=== PATIENT | male | born 1945 | race Caucasian/White ===

== ENCOUNTER 2017-02-12 08:54 | Emergency (ER) | payer MEDICARE, MEDICAID ==
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
[2017-02-12 10:57] VITALS: BP 127/110
== END 2017-02-12 10:56 | disposition home or self-care (01) ==
LOC: ED 08:54
DX: Z41.2 Encounter for routine and ritual male circumcision (principal); F17.210 Nicotine dependence, cigarettes, uncomplicated; E78.5 Hyperlipidemia, unspecified
CPT/HCPCS: 99282

== ENCOUNTER 2017-05-08 04:13 | Emergency (ER) | payer MEDICARE, MEDICAID ==
[2017-05-08] MEDS ORDERED: Albuterol/Ipratropium NEB.SOL* Albuterol 2.5 MG/Ipratropium 0.5 MG 3 ML INH ONE (04:36)
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
[2017-05-08 05:25] LABS: Hematocrit 42 % (42-52); Hemoglobin 13.9 g/dl (14.0-18.0); Mean Corpuscular HGB Conc 33 g/dl (31-36); Mean Corpuscular Hemoglobin 31 pg (27-31); Mean Corpuscular Volume 94 fL (80-94); Mean Platelet Volume 10 um3 (7.4-10.4); Red Blood Count 4.44 10^6/ul (4.0-5.4); Red Cell Distribution Width 13 % (10.5-15); White Blood Count 12.8 10^3/ul (3.5-10.8)
[2017-05-08 05:37] LABS: Albumin 4.2 g/dL (3.2-5.2); BUN/Creatinine Ratio 21.3 (8-20); Calcium 9.5 mg/dL (8.6-10.3); EGFR African American 123.3 (>60); EGFR Non-African American 95.8 (>60); Globulin 3.1 g/dL (2-4); Potassium 3.8 mmol/L (3.5-5.0); Total Bilirubin 0.8 mg/dL (0.2-1.0); Total Protein 7.3 g/dL (6.4-8.9)
[2017-05-08] MEDS ORDERED: methylPREDNISolone 125 MG* 2 ML VIAL IV ONE (05:52)
[2017-05-08] MEDS ORDERED: Ketorolac INJ* 30 MG/ML 1 ML VIAL IM ONE (06:03)
[2017-05-08] MEDS ORDERED: Ketorolac INJ* 30 MG/ML 1 ML VIAL ONE (06:05)
[2017-05-08] MEDS ORDERED: Ketorolac INJ* 30 MG/ML 1 ML VIAL IV PUSH ONE (06:08)
[2017-05-08 06:14] LABS: C Reactive Protein 24.51 mg/L (< 5.00)
[2017-05-08 06:44] VITALS: BP 127/59
--- NOTE | 2017-05-08 07:47 | RAD ---
HISTORY: Shortness of breath COMPARISONS: September 16, 2014 VIEWS: 2: Frontal dual-energy and lateral views of the chest. FINDINGS: CARDIOMEDIASTINAL SILHOUETTE: The cardiomediastinal silhouette is normal. OFELIA: The ofelia are normal. PLEURA: The costophrenic angles are sharp. No pleural abnormalities are noted. LUNG PARENCHYMA: There is patchy alveolar opacification of the left base ABDOMEN: The upper abdomen is clear. There is no subphrenic gas. BONES AND SOFT TISSUES: No bone or soft tissue abnormalities are noted. OTHER: Left-sided pacemaker is noted IMPRESSION: PATCHY LEFT BASILAR ATELECTASIS VERSUS CONSOLIDATION. RECOMMEND FOLLOW-UP UNTIL RESOLUTION TO EXCLUDE UNDERLYING PULMONARY PARENCHYMAL PATHOLOGY.
== END 2017-05-08 06:44 | disposition home or self-care (01) ==
LOC: ED 04:13
DX: J44.1 Chronic obstructive pulmonary disease with (acute) exacerbation (principal); M54.9 Dorsalgia, unspecified; R07.9 Chest pain, unspecified; F17.210 Nicotine dependence, cigarettes, uncomplicated; R06.02 Shortness of breath
CPT/HCPCS: 36415; 71020; 80053; 83605; 84484; 85025; 86140; 93005; 99282; A9270-GY; J1885; J2930

== ENCOUNTER → 2018-01-02 08:50 | Day surgery (SDC) | payer MEDICARE, MEDICAID ==
[~2018-01-02 08:50] MED LIST: Iohexol 300 (CONTRAST) 10 ML SDV ONE
== END | disposition home or self-care (01) ==
LOC: CHICATH 08:50
PROVIDERS: ATTEND Specialist
DX: T82.110A Breakdown (mechanical) of cardiac electrode, initial encounter (principal); Z95.0 Presence of cardiac pacemaker; I25.10 Atherosclerotic heart disease of native coronary artery without angina pectoris; I49.5 Sick sinus syndrome; I10 Essential (primary) hypertension; I25.2 Old myocardial infarction; G47.33 Obstructive sleep apnea (adult) (pediatric); M19.90 Unspecified osteoarthritis, unspecified site; R06.02 Shortness of breath; E78.5 Hyperlipidemia, unspecified; I47.1 Supraventricular tachycardia; R42 Dizziness and giddiness; Z72.0 Tobacco use; R55 Syncope and collapse
CPT/HCPCS: Q9967

== ENCOUNTER 2021-01-26 08:19 | Observation (INO) ==
[2021-01-26 09:07] LABS: ABS Lymphocytes 1.1 10^3/ul (1.0-4.8); ABS Monocytes 1.1 10^3/ul (0-0.8); ABS Neutrophils 13.3 10^3/ul (1.5-7.7); Eosinophil % 0.2 %; Hematocrit 40 % (42-52); Hemoglobin 13.1 g/dL (14.0-18.0); Lymphocyte % 7.2 %; Mean Corpuscular HGB Conc 33 g/dL (31-36); Mean Corpuscular Hemoglobin 29 pg (27-31); Mean Corpuscular Volume 90 fL (80-94); Mean Platelet Volume 9.3 fL (7.4-10.4); Platelet Count 248 10^3/uL (150-450); Red Blood Count 4.45 10^6 /uL (4.18-5.48); Red Cell Distribution Width 15 % (10-15); White Blood Count 15.6 10^3/uL (3.5-10.8)
[2021-01-26 09:27] LABS: ALT 22 U/L (7-52); AST 49 U/L (13-39); Albumin 4.5 g/dL (3.2-5.2); Albumin/Globulin Ratio 1.5 (1-3); Alkaline Phosphatase 87 U/L (34-104); Anion Gap 9 mmol/L (2-11); BUN/Creatinine Ratio 20.8 (8-20); Blood Urea Nitrogen 16 mg/dL (6-24); CO2 Carbon Dioxide 27 mmol/L (22-32); Chloride 100 mmol/L (101-111); Creatine Kinase 1244 U/L (10-223); EGFR African American 119.8 (>60); Glucose 146 mg/dL (70-100); Magnesium 1.8 mg/dL (1.9-2.7); Potassium 4.1 mmol/L (3.5-5.0); Sodium 136 mmol/L (135-145); Total Protein 7.5 g/dL (6.4-8.9)
[2021-01-26 09:41] LABS: Troponin I 0.03 ng/mL (<0.03)
[2021-01-26 09:48] LABS: Acetaminophen < 15 mcg/mL; Alcohol, S < 10 mg/dL (<10); Salicylate < 2.50 mg/dL (<30)
[2021-01-26 09:57] LABS: TSH Ultra Thyroid Stim Horm 1.12 mcIU/mL (0.34-5.60)
[2021-01-26] MEDS ORDERED: cefTRIAXone 1 gm/50 mL NS BAG 1 GM/50 ML BAG IV ONE (10:00)
[2021-01-26] MEDS ORDERED: Albuterol 2.5mg/3 ml (0.083%) NEB.SOLN INH SCH (13:00)
[2021-01-26] MEDS ORDERED: Albuterol HFA INHALER 8 gm MDI INH PRN (13:53)
[2021-01-26] MEDS: Heparin 5000 UNITS/ML 1 mL VIAL SUBCUT SCH ×2 (14:47→22:56)
[2021-01-26 15:11] LABS: Urine Appearance Clear; Urine Bilirubin Negative (Negative); Urine Blood Negative (Negative); Urine Color Yellow; Urine Glucose Negative (Negative); Urine Ketones 1+ (Negative); Urine Nitrite Negative (Negative); Urine Protein Negative (Negative); Urine Specific Gravity 1.014 (1.010-1.030); Urine Urobilinogen Negative (Negative)
[2021-01-26] MEDS: NS 0.9% 1000 ml BAG 1,000 ML IV SCH (17:38)
[2021-01-26] MEDS: Albuterol 2.5mg/3 ml (0.083%) NEB.SOLN INH SCH (19:14)
[2021-01-27] MEDS: Albuterol 2.5mg/3 ml (0.083%) NEB.SOLN INH SCH ×3 (01:22→13:18)
[2021-01-27] MEDS: NS 0.9% 1000 ml BAG 1,000 ML IV SCH (03:41)
[2021-01-27] MEDS: Heparin 5000 UNITS/ML 1 mL VIAL SUBCUT SCH ×2 (07:48→15:54)
[2021-01-27] MEDS ORDERED: DULoxetine DR 60 mg CAP PO SCH (09:00)
[2021-01-27] MEDS ORDERED: Vitamin THERAPEUTIC TAB PO SCH (09:00)
[2021-01-27] MEDS ORDERED: SPIRIVA Respimat (tiotropium) 2.5 mcg/inh Inhaler INH SCH (09:00)
[2021-01-27] MEDS ORDERED: Aspirin EC 81 mg TAB.EC (enteric coated) PO SCH (09:00)
[2021-01-27 10:51] VITALS: BP 151/78
[2021-01-27] MEDS ORDERED: Polyethylene Glycol 3350 17 GM PACKET PO SCH (11:00)
[2021-01-27] MEDS ORDERED: Magnesium Hydroxide LIQ 30 ML UDC PO SCH (11:00)
== END 2021-01-27 17:15 | disposition home or self-care (01) ==
LOC: ED 08:19 → MED 10:56 → INTOOBSV 10:56 → MED 14:07
PROVIDERS: ADMIT Hospitalist; ATTEND Hospitalist

== ENCOUNTER 2022-02-01 10:31 | Inpatient (IN) ==
[2022-02-01 11:36] LABS: ABS Eosinophils 0.1 10^3/ul (0-0.6); ABS Lymphocytes 1.1 10^3/ul (1.0-4.8); ABS Monocytes 0.9 10^3/ul (0-0.8); Eosinophil % 1.8 %; Hematocrit 31 % (42-52); Hemoglobin 10.2 g/dL (14.0-18.0); Lymphocyte % 13.8 %; Mean Corpuscular HGB Conc 33 g/dL (31-36); Mean Corpuscular Hemoglobin 30 pg (27-31); Mean Corpuscular Volume 91 fL (80-94); Mean Platelet Volume 9.6 fL (7.4-10.4); Nucleated Red Blood Cells % 0.1; Platelet Count 137 10^3/uL (150-450); Red Blood Count 3.38 10^6 /uL (4.18-5.48); Red Cell Distribution Width 14 % (10-15); White Blood Count 8.2 10^3/uL (3.5-10.8)
[2022-02-01 12:10] LABS: ALT 35 U/L (7-52); AST 35 U/L (13-39); Albumin 3.8 g/dL (3.2-5.2); Albumin/Globulin Ratio 1.7 (1-3); Alkaline Phosphatase 82 U/L (35-149); Anion Gap 7 mmol/L (2-11); Blood Urea Nitrogen 11 mg/dL (6-24); CO2 Carbon Dioxide 29 mmol/L (22-32); Calcium 8.9 mg/dL (8.6-10.3); Chloride 103 mmol/L (101-111); Globulin 2.2 g/dL (2-4); Glucose 164 mg/dL (70-100); Potassium 4.3 mmol/L (3.5-5.0); Sodium 139 mmol/L (135-145); eGFR CKD-EPI 94.3 (>60)
[2022-02-01 12:21] LABS: Creatine Kinase 193 U/L (10-223)
[2022-02-01 16:11] LABS: % Iron Saturation 18 % (15-55); Iron 61 ug/dL (50-212); Total Iron Binding Capacity 343 mcg/dL (250-450); Transferrin 245 mg/dL (203-362); Unsaturated Iron Binding 282 ug/dL
[2022-02-01 16:33] LABS: Ferritin 53.1 ng/mL (24-336)
[2022-02-01 16:37] LABS: Vitamin B12 375 pg/mL (180-914)
[2022-02-01 16:38] LABS: Folate > 20.00 ng/mL (5.90-24.80)
[2022-02-01] MEDS ORDERED: ALIROCUMAB 75 MG/ML SUBCUT SCH (17:30)
[2022-02-01] MEDS: Mometasone/Formoter 200/5 MDI INH SCH (20:03)
[2022-02-01 21:27] LABS: Urine Appearance Clear; Urine Bilirubin Negative (Negative); Urine Blood Negative (Negative); Urine Color Amber; Urine Glucose Negative (Negative); Urine Ketones Trace (Negative); Urine Nitrite Negative (Negative); Urine Protein Negative (Negative); Urine Specific Gravity 1.028 (1.002-1.030); Urine Urobilinogen Negative (Negative)
[2022-02-01] MEDS: Albuterol/Ipratropium NEB.SOL (2.5/0.5 MG) 3 ML NEB.SOLN INH PRN (22:36)
[2022-02-02 05:52] LABS: ABS Eosinophils 0.2 10^3/ul (0-0.6); ABS Lymphocytes 2.2 10^3/ul (1.0-4.8); ABS Neutrophils 4.6 10^3/ul (1.5-7.7); Hematocrit 36 % (42-52); Hemoglobin 12.1 g/dL (14.0-18.0); Lymphocyte % 27.4 %; Mean Corpuscular HGB Conc 34 g/dL (31-36); Mean Corpuscular Hemoglobin 31 pg (27-31); Mean Corpuscular Volume 90 fL (80-94); Nucleated Red Blood Cells % 0.1; Platelet Count 174 10^3/uL (150-450); Red Blood Count 3.97 10^6 /uL (4.18-5.48); Red Cell Distribution Width 14 % (10-15)
[2022-02-02 06:16] LABS: Calcium 8.9 mg/dL (8.6-10.3); eGFR CKD-EPI 96.7 (>60)
[2022-02-02] MEDS: Mometasone/Formoter 200/5 MDI INH SCH ×2 (07:40→20:22)
[2022-02-02] MEDS: SPIRIVA Respimat (tiotropium) 2.5 mcg/inh Inhaler INH SCH (07:41)
[2022-02-02] MEDS: Vitamin THERAPEUTIC TAB PO SCH (09:04)
[2022-02-02] MEDS: Aspirin EC 81 mg TAB.EC (enteric coated) PO SCH (09:04)
[2022-02-02] MEDS ORDERED: Magnesium Hydroxide LIQ 30 ML UDC PO PRN (11:28)
[2022-02-02] MEDS ORDERED: Senna TAB 8.6 mg TAB PO PRN (11:28)
[2022-02-02] MEDS ORDERED: Polyethylene Glycol 3350 17 GM PACKET PO PRN (11:28)
[2022-02-02] MEDS: Magnesium Hydroxide LIQ 30 ML UDC PO SCH ×2 (13:11→20:03)
[2022-02-02] MEDS: Albuterol/Ipratropium NEB.SOL (2.5/0.5 MG) 3 ML NEB.SOLN INH PRN (20:16)
[2022-02-03 06:31] LABS: ABS Eosinophils 0.3 10^3/ul (0-0.6); ABS Monocytes 0.9 10^3/ul (0-0.8); ABS Neutrophils 5.3 10^3/ul (1.5-7.7); Eosinophil % 3.3 %; Hematocrit 35 % (42-52); Hemoglobin 11.6 g/dL (14.0-18.0); Lymphocyte % 22.9 %; Mean Corpuscular HGB Conc 34 g/dL (31-36); Mean Corpuscular Hemoglobin 31 pg (27-31); Mean Corpuscular Volume 91 fL (80-94); Mean Platelet Volume 9.5 fL (7.4-10.4); Platelet Count 150 10^3/uL (150-450); Red Blood Count 3.81 10^6 /uL (4.18-5.48); Red Cell Distribution Width 14 % (10-15); White Blood Count 8.5 10^3/uL (3.5-10.8)
[2022-02-03 06:44] LABS: Calcium 8.8 mg/dL (8.6-10.3); Potassium 4.1 mmol/L (3.5-5.0)
[2022-02-03 06:50] LABS: eGFR CKD-EPI 96.7 (>60)
[2022-02-03] MEDS: SPIRIVA Respimat (tiotropium) 2.5 mcg/inh Inhaler INH SCH (07:43)
[2022-02-03] MEDS: Mometasone/Formoter 200/5 MDI INH SCH ×2 (07:49→20:10)
[2022-02-03] MEDS: Vitamin THERAPEUTIC TAB PO SCH (09:21)
[2022-02-03] MEDS: Magnesium Hydroxide LIQ 30 ML UDC PO SCH ×2 (09:21→22:10)
[2022-02-03] MEDS: Aspirin EC 81 mg TAB.EC (enteric coated) PO SCH (09:22)
[2022-02-04 05:10] LABS: ABS Eosinophils 0.3 10^3/ul (0-0.6); ABS Lymphocytes 1.8 10^3/ul (1.0-4.8); ABS Neutrophils 6.8 10^3/ul (1.5-7.7); Eosinophil % 2.7 %; Hematocrit 33 % (42-52); Hemoglobin 11.2 g/dL (14.0-18.0); Lymphocyte % 18.2 %; Mean Corpuscular HGB Conc 34 g/dL (31-36); Mean Corpuscular Hemoglobin 31 pg (27-31); Mean Corpuscular Volume 90 fL (80-94); Mean Platelet Volume 9.2 fL (7.4-10.4); Platelet Count 155 10^3/uL (150-450); Red Blood Count 3.66 10^6 /uL (4.18-5.48); Red Cell Distribution Width 14 % (10-15); White Blood Count 9.9 10^3/uL (3.5-10.8)
[2022-02-04 05:22] LABS: Calcium 8.6 mg/dL (8.6-10.3); Potassium 4.1 mmol/L (3.5-5.0); eGFR CKD-EPI 94.7 (>60)
[2022-02-04] MEDS: Vitamin THERAPEUTIC TAB PO SCH (09:39)
[2022-02-04] MEDS: Aspirin EC 81 mg TAB.EC (enteric coated) PO SCH (09:39)
[2022-02-04] MEDS: Magnesium Hydroxide LIQ 30 ML UDC PO SCH ×2 (09:39→20:59)
[2022-02-04] MEDS: Albuterol HFA INHALER 8 gm MDI INH PRN ×2 (10:10→19:27)
[2022-02-04] MEDS: Mometasone/Formoter 200/5 MDI INH SCH ×2 (10:12→19:27)
[2022-02-04] MEDS: SPIRIVA Respimat (tiotropium) 2.5 mcg/inh Inhaler INH SCH (10:12)
[2022-02-04] MEDS: Lidocaine PATCH 5% PATCH TRANSDERM SCH (13:50)
[2022-02-05 06:21] LABS: ABS Eosinophils 0.3 10^3/ul (0-0.6); ABS Lymphocytes 1.8 10^3/ul (1.0-4.8); ABS Neutrophils 6.1 10^3/ul (1.5-7.7); Hematocrit 33 % (42-52); Hemoglobin 11.2 g/dL (14.0-18.0); Lymphocyte % 19.9 %; Mean Corpuscular HGB Conc 34 g/dL (31-36); Mean Corpuscular Hemoglobin 30 pg (27-31); Mean Corpuscular Volume 90 fL (80-94); Mean Platelet Volume 9.7 fL (7.4-10.4); Platelet Count 173 10^3/uL (150-450); Red Blood Count 3.67 10^6 /uL (4.18-5.48); Red Cell Distribution Width 14 % (10-15); White Blood Count 9.3 10^3/uL (3.5-10.8)
[2022-02-05 07:37] LABS: Calcium 8.6 mg/dL (8.6-10.3); Potassium 4.4 mmol/L (3.5-5.0)
[2022-02-05 07:43] LABS: eGFR CKD-EPI 96.3 (>60)
[2022-02-05] MEDS: Mometasone/Formoter 200/5 MDI INH SCH ×2 (08:21→19:34)
[2022-02-05] MEDS: Albuterol HFA INHALER 8 gm MDI INH PRN (08:22)
[2022-02-05] MEDS: SPIRIVA Respimat (tiotropium) 2.5 mcg/inh Inhaler INH SCH (08:22)
[2022-02-05] MEDS: Vitamin THERAPEUTIC TAB PO SCH (11:01)
[2022-02-05] MEDS: Aspirin EC 81 mg TAB.EC (enteric coated) PO SCH (11:02)
[2022-02-05] MEDS: Lidocaine PATCH 5% PATCH TRANSDERM SCH (11:03)
[2022-02-05] MEDS: Magnesium Hydroxide LIQ 30 ML UDC PO SCH ×2 (11:04→21:18)
[2022-02-06] MEDS: Albuterol HFA INHALER 8 gm MDI INH PRN ×2 (07:35→20:21)
[2022-02-06] MEDS: Mometasone/Formoter 200/5 MDI INH SCH ×2 (07:36→20:18)
[2022-02-06] MEDS: SPIRIVA Respimat (tiotropium) 2.5 mcg/inh Inhaler INH SCH (07:36)
[2022-02-06] MEDS: Lidocaine PATCH 5% PATCH TRANSDERM SCH (10:29)
[2022-02-06] MEDS: Vitamin THERAPEUTIC TAB PO SCH (10:31)
[2022-02-06] MEDS: Magnesium Hydroxide LIQ 30 ML UDC PO SCH (11:55)
[2022-02-07 07:04] LABS: ABS Eosinophils 0.3 10^3/ul (0-0.6); ABS Lymphocytes 1.8 10^3/ul (1.0-4.8); ABS Monocytes 0.9 10^3/ul (0-0.8); ABS Neutrophils 5.6 10^3/ul (1.5-7.7); Eosinophil % 3.4 %; Hematocrit 31 % (42-52); Hemoglobin 10.9 g/dL (14.0-18.0); Lymphocyte % 20.9 %; Mean Corpuscular HGB Conc 35 g/dL (31-36); Mean Corpuscular Hemoglobin 32 pg (27-31); Mean Corpuscular Volume 91 fL (80-94); Mean Platelet Volume 9.3 fL (7.4-10.4); Platelet Count 181 10^3/uL (150-450); Red Blood Count 3.46 10^6 /uL (4.18-5.48); Red Cell Distribution Width 14 % (10-15); White Blood Count 8.7 10^3/uL (3.5-10.8)
[2022-02-07 07:28] LABS: Calcium 8.6 mg/dL (8.6-10.3); Potassium 4.4 mmol/L (3.5-5.0); eGFR CKD-EPI 96.7 (>60)
[2022-02-07] MEDS: SPIRIVA Respimat (tiotropium) 2.5 mcg/inh Inhaler INH SCH (08:07)
[2022-02-07] MEDS: Mometasone/Formoter 200/5 MDI INH SCH ×2 (08:08→19:49)
[2022-02-07] MEDS: Lidocaine PATCH 5% PATCH TRANSDERM SCH (09:25)
[2022-02-07] MEDS: Vitamin THERAPEUTIC TAB PO SCH (09:26)
[2022-02-07] MEDS: Aspirin EC 81 mg TAB.EC (enteric coated) PO SCH (17:27)
[2022-02-07] MEDS: Enoxaparin 40 MG/0.4 ML SYR SUBCUT SCH (17:27)
[2022-02-08] MEDS: Mometasone/Formoter 200/5 MDI INH SCH ×2 (08:37→19:46)
[2022-02-08] MEDS: SPIRIVA Respimat (tiotropium) 2.5 mcg/inh Inhaler INH SCH (08:37)
[2022-02-08] MEDS: Lidocaine PATCH 5% PATCH TRANSDERM SCH (09:59)
[2022-02-08] MEDS: Aspirin EC 81 mg TAB.EC (enteric coated) PO SCH (10:00)
[2022-02-08] MEDS: Vitamin THERAPEUTIC TAB PO SCH (10:00)
[2022-02-08 10:27] LABS: Rapid COVID-19 Molecular Undetected (Undetected)
[2022-02-08] MEDS: Enoxaparin 40 MG/0.4 ML SYR SUBCUT SCH (20:58)
[2022-02-09] MEDS ORDERED: Buffered Lidocaine 1% SYRIN 1 ml INTRADERM ONE (06:00)
[2022-02-09 06:07] LABS: ABS Eosinophils 0.2 10^3/ul (0-0.6); ABS Lymphocytes 1.7 10^3/ul (1.0-4.8); ABS Monocytes 1.1 10^3/ul (0-0.8); ABS Neutrophils 7.4 10^3/ul (1.5-7.7); Eosinophil % 1.9 %; Hematocrit 33 % (42-52); Hemoglobin 11.1 g/dL (14.0-18.0); Lymphocyte % 16.1 %; Mean Corpuscular HGB Conc 33 g/dL (31-36); Mean Corpuscular Hemoglobin 31 pg (27-31); Mean Corpuscular Volume 91 fL (80-94); Mean Platelet Volume 9.8 fL (7.4-10.4); Platelet Count 179 10^3/uL (150-450); Red Blood Count 3.64 10^6 /uL (4.18-5.48); Red Cell Distribution Width 14 % (10-15); White Blood Count 10.4 10^3/uL (3.5-10.8)
[2022-02-09 06:28] LABS: Calcium 8.6 mg/dL (8.6-10.3); Potassium 4.4 mmol/L (3.5-5.0)
[2022-02-09] MEDS ORDERED: Lidocaine 1.5% EPI 1:200,000 30 ML SDV ONE (06:51)
[2022-02-09] MEDS ORDERED: ceFAZolin VIAL VIAL ONE (06:51)
[2022-02-09] MEDS ORDERED: Gelfoam 12-7 ADSORBABL SPONGE ONE (06:51)
[2022-02-09] MEDS ORDERED: Thrombin 5,000 UNITS 1 APPLIC KIT - topical use - TOPICAL ONE ×2 (06:51→07:50)
[2022-02-09] MEDS ORDERED: Gelfoam Sponge SIZE 100 SPONGE ONE (06:52)
[2022-02-09] MEDS ORDERED: Midazolam 2 mg/2 ml VIAL 1 mg/ml 2 ml VIAL (2 mg) ONE (06:58)
[2022-02-09] MEDS ORDERED: Rocuronium 50 mg VIAL 10 mg/ml 5 ml VIAL (50 mg) ONE (06:58)
[2022-02-09] MEDS ORDERED: Propofol 10 MG/ML 20 ML BTL ONE ×2 (06:58→07:47)
[2022-02-09] MEDS ORDERED: fentaNYL 250 mcg/5 ml 50 MCG/ML 5 ml VIAL (250 MCG) ONE (06:58)
[2022-02-09] MEDS ORDERED: Lidocaine 2% PF 5 ML VIAL ONE (06:58)
[2022-02-09] MEDS ORDERED: Levalbuterol 1.25MG/0.5ML NEB.SOL ONE (07:11)
[2022-02-09] MEDS ORDERED: ceFAZolin 2 GM in NS PREMIX 2 GM/100 ML BAG IVPB ONE (07:15)
[2022-02-09] MEDS ORDERED: Levalbuterol 1.25MG/0.5ML NEB.SOL INH ONE (07:22)
[2022-02-09] MEDS ORDERED: Levalbuterol 1.25MG/0.5ML NEB.SOL INH PRN (07:23)
[2022-02-09] MEDS ORDERED: fentaNYL 100 mcg/2 ml 50 MCG/ML VIAL IV PRN (07:23)
[2022-02-09] MEDS ORDERED: DiMENhydriNATE IV 50 mg/ml 1 ml VIAL IV PUSH PRN (07:23)
[2022-02-09] MEDS ORDERED: diPHENhydraMINE IV 50 MG/ML 1 ml VIAL (BENADRYL) IV PRN (07:23)
[2022-02-09] MEDS ORDERED: Naloxone 0.4 mg VIAL 0.4 mg/ml 1 ml VIAL IV PRN (07:23)
[2022-02-09] MEDS ORDERED: Ondansetron 4 mg VIAL 2 MG/ML 2 ml VIAL IV PRN (07:23)
[2022-02-09] MEDS: Mometasone/Formoter 200/5 MDI INH SCH ×2 (07:41→20:41)
[2022-02-09] MEDS: SPIRIVA Respimat (tiotropium) 2.5 mcg/inh Inhaler INH SCH (07:41)
[2022-02-09] MEDS ORDERED: Ondansetron 4 mg VIAL 2 MG/ML 2 ml VIAL ONE (07:55)
[2022-02-09] MEDS ORDERED: Dexamethasone IV 4 MG/ML VIAL 1 ml VIAL ONE (07:55)
[2022-02-09] MEDS ORDERED: Acetaminophen IV 1 GM/100ML 100 ML IV ONE (07:57)
[2022-02-09] MEDS: Aspirin EC 81 mg TAB.EC (enteric coated) PO SCH (11:16)
[2022-02-09] MEDS: Lidocaine PATCH 5% PATCH TRANSDERM SCH (11:17)
[2022-02-09] MEDS: Vitamin THERAPEUTIC TAB PO SCH (11:18)
[2022-02-09] MEDS: Lactated Ringers 1000 ml BAG 1,000 ML IV SCH ×2 (12:37→23:12)
[2022-02-10] MEDS: SPIRIVA Respimat (tiotropium) 2.5 mcg/inh Inhaler INH SCH ×2 (08:18→12:48)
[2022-02-10] MEDS: Mometasone/Formoter 200/5 MDI INH SCH ×3 (08:18→19:33)
[2022-02-10] MEDS: Lidocaine PATCH 5% PATCH TRANSDERM SCH (08:47)
[2022-02-10] MEDS: Aspirin EC 81 mg TAB.EC (enteric coated) PO SCH (08:48)
[2022-02-10] MEDS: Vitamin THERAPEUTIC TAB PO SCH (08:49)
[2022-02-10] MEDS: Senna TAB 8.6 mg TAB PO SCH (20:23)
[2022-02-10] MEDS: Magnesium Hydroxide LIQ 30 ML UDC PO SCH (20:23)
[2022-02-11] MEDS: Mometasone/Formoter 200/5 MDI INH SCH ×2 (08:31→19:17)
[2022-02-11] MEDS: SPIRIVA Respimat (tiotropium) 2.5 mcg/inh Inhaler INH SCH (08:31)
[2022-02-11] MEDS: Aspirin EC 81 mg TAB.EC (enteric coated) PO SCH (09:52)
[2022-02-11] MEDS: Vitamin THERAPEUTIC TAB PO SCH (09:53)
[2022-02-11] MEDS: Lidocaine PATCH 5% PATCH TRANSDERM SCH (09:56)
[2022-02-11] MEDS: Magnesium Hydroxide LIQ 30 ML UDC PO SCH ×2 (09:58→20:25)
[2022-02-11] MEDS: Senna TAB 8.6 mg TAB PO SCH (20:26)
[2022-02-12] MEDS: Vitamin THERAPEUTIC TAB PO SCH (08:51)
[2022-02-12] MEDS: Aspirin EC 81 mg TAB.EC (enteric coated) PO SCH (08:52)
[2022-02-12] MEDS: Lidocaine PATCH 5% PATCH TRANSDERM SCH (08:55)
[2022-02-12] MEDS: Magnesium Hydroxide LIQ 30 ML UDC PO SCH (08:59)
[2022-02-12] MEDS: Mometasone/Formoter 200/5 MDI INH SCH (09:07)
[2022-02-12] MEDS: SPIRIVA Respimat (tiotropium) 2.5 mcg/inh Inhaler INH SCH (09:08)
[2022-02-12 16:58] VITALS: BP 103/64
== END 2022-02-12 16:54 | DRG 519 ==
LOC: ED 10:31 → SUATTDRO 15:45 → EDHOLD 15:45 → MED 19:18 → SSU 02-09 10:20 → PMRU 02-12 16:53
PROVIDERS: ADMIT Internal Medicine; ATTEND Internal Medicine

== ENCOUNTER 2022-02-12 13:28 | Inpatient (IN) ==
[2022-02-12] MEDS ORDERED: Albuterol HFA INHALER 8 gm MDI INH PRN (19:30)
[2022-02-12] MEDS: Mometasone/Formoter 200/5 MDI INH SCH (22:02)
[2022-02-12] MEDS: Senna TAB 8.6 mg TAB PO PRN (22:03)
[2022-02-13] MEDS: Mometasone/Formoter 200/5 MDI INH SCH ×2 (08:40→20:12)
[2022-02-13] MEDS: SPIRIVA Respimat (tiotropium) 2.5 mcg/inh Inhaler INH SCH (08:42)
[2022-02-13] MEDS: Aspirin EC 81 mg TAB.EC (enteric coated) PO SCH (09:21)
[2022-02-13] MEDS: Lidocaine PATCH 5% PATCH TRANSDERM SCH (09:22)
[2022-02-13] MEDS: Magnesium Hydroxide LIQ 30 ML UDC PO PRN (17:36)
[2022-02-13] MEDS ORDERED: Al Hydrox/Mg Hydrox/Simet LIQ 30 ML UDC PO PRN (22:44)
[2022-02-14 06:37] LABS: ABS Eosinophils 0.3 10^3/ul (0-0.6); ABS Monocytes 0.7 10^3/ul (0-0.8); ABS Neutrophils 5.3 10^3/ul (1.5-7.7); Eosinophil % 3.9 %; Hematocrit 30 % (42-52); Hemoglobin 10.2 g/dL (14.0-18.0); Lymphocyte % 23.9 %; Mean Corpuscular HGB Conc 34 g/dL (31-36); Mean Corpuscular Hemoglobin 31 pg (27-31); Mean Corpuscular Volume 91 fL (80-94); Mean Platelet Volume 9.1 fL (7.4-10.4); Platelet Count 201 10^3/uL (150-450); Red Blood Count 3.29 10^6 /uL (4.18-5.48); Red Cell Distribution Width 13 % (10-15); White Blood Count 8.3 10^3/uL (3.5-10.8)
[2022-02-14 07:10] LABS: Albumin 3.1 g/dL (3.2-5.2); Albumin/Globulin Ratio 1.6 (1-3); Calcium 8.4 mg/dL (8.6-10.3); Potassium 4.2 mmol/L (3.5-5.0); Total Bilirubin 0.4 mg/dL (0.2-1.0); Total Protein 5.1 g/dL (6.4-8.9); eGFR CKD-EPI 96.7 (>60)
[2022-02-14] MEDS: Mometasone/Formoter 200/5 MDI INH SCH ×2 (08:29→20:24)
[2022-02-14] MEDS: Aspirin EC 81 mg TAB.EC (enteric coated) PO SCH (08:30)
[2022-02-14] MEDS: Lidocaine PATCH 5% PATCH TRANSDERM SCH (08:32)
[2022-02-14] MEDS: SPIRIVA Respimat (tiotropium) 2.5 mcg/inh Inhaler INH SCH (11:04)
[2022-02-15] MEDS: Mometasone/Formoter 200/5 MDI INH SCH ×2 (06:52→21:16)
[2022-02-15] MEDS: SPIRIVA Respimat (tiotropium) 2.5 mcg/inh Inhaler INH SCH (08:08)
[2022-02-15] MEDS: Lidocaine PATCH 5% PATCH TRANSDERM SCH (09:06)
[2022-02-15] MEDS: Aspirin EC 81 mg TAB.EC (enteric coated) PO SCH (09:07)
[2022-02-15] MEDS: Senna TAB 8.6 mg TAB PO PRN (21:25)
[2022-02-16] MEDS: Mometasone/Formoter 200/5 MDI INH SCH ×2 (08:09→19:25)
[2022-02-16] MEDS: SPIRIVA Respimat (tiotropium) 2.5 mcg/inh Inhaler INH SCH (08:10)
[2022-02-16] MEDS: Lidocaine PATCH 5% PATCH TRANSDERM SCH (08:13)
[2022-02-16] MEDS: Aspirin EC 81 mg TAB.EC (enteric coated) PO SCH (08:13)
[2022-02-17 02:25] LABS: Urine Appearance Clear; Urine Bilirubin Negative (Negative); Urine Blood 1+ (Negative); Urine Color Yellow; Urine Glucose Negative (Negative); Urine Ketones Negative (Negative); Urine Nitrite Negative (Negative); Urine Protein Negative (Negative); Urine Specific Gravity 1.016 (1.002-1.030); Urine Urobilinogen Negative (Negative)
[2022-02-17 02:30] LABS: Urine Bacteria Absent (Absent); Urine Red Blood Cell Trace(0-2/hpf) (Absent); Urine Squamous Epithelial Cell Present (Absent); Urine White Blood Cell 1+(6-10/hpf) (Absent)
[2022-02-17] MEDS: Aspirin EC 81 mg TAB.EC (enteric coated) PO SCH (08:59)
[2022-02-17] MEDS: Magnesium Hydroxide LIQ 30 ML UDC PO PRN ×2 (09:03→20:24)
[2022-02-17] MEDS: SPIRIVA Respimat (tiotropium) 2.5 mcg/inh Inhaler INH SCH (09:05)
[2022-02-17] MEDS: Lidocaine PATCH 5% PATCH TRANSDERM SCH (09:07)
[2022-02-17] MEDS: Mometasone/Formoter 200/5 MDI INH SCH ×2 (09:22→19:27)
[2022-02-17] MEDS: Senna TAB 8.6 mg TAB PO PRN (20:19)
[2022-02-17] MEDS: Enoxaparin 80 MG/0.8 ML SYR SUBCUT SCH (20:20)
[2022-02-17] MEDS ORDERED: Heparin 5000 UNITS/ML 1 mL VIAL SUBCUT SCH (21:00)
[2022-02-18 04:17] LABS: ABS Eosinophils 0.2 10^3/ul (0-0.6); ABS Lymphocytes 1.4 10^3/ul (1.0-4.8); ABS Monocytes 1.1 10^3/ul (0-0.8); ABS Neutrophils 5.8 10^3/ul (1.5-7.7); Eosinophil % 2.8 %; Hematocrit 29 % (42-52); Hemoglobin 9.8 g/dL (14.0-18.0); Lymphocyte % 16.5 %; Mean Corpuscular HGB Conc 34 g/dL (31-36); Mean Corpuscular Hemoglobin 31 pg (27-31); Mean Corpuscular Volume 91 fL (80-94); Mean Platelet Volume 8.9 fL (7.4-10.4); Platelet Count 207 10^3/uL (150-450); Red Blood Count 3.18 10^6 /uL (4.18-5.48); Red Cell Distribution Width 13 % (10-15); White Blood Count 8.6 10^3/uL (3.5-10.8)
[2022-02-18] MEDS: Mometasone/Formoter 200/5 MDI INH SCH ×2 (06:38→18:42)
[2022-02-18] MEDS: Enoxaparin 80 MG/0.8 ML SYR SUBCUT SCH ×2 (09:11→21:39)
[2022-02-18] MEDS: Aspirin EC 81 mg TAB.EC (enteric coated) PO SCH (09:16)
[2022-02-18] MEDS: SPIRIVA Respimat (tiotropium) 2.5 mcg/inh Inhaler INH SCH (10:13)
[2022-02-18] MEDS: Lidocaine PATCH 5% PATCH TRANSDERM SCH (10:30)
[2022-02-18] MEDS ORDERED: Sodium Phosphate ADULT ENEMA 133 ML BTL PR PRN (15:00)
[2022-02-19] MEDS: Enoxaparin 80 MG/0.8 ML SYR SUBCUT SCH ×2 (08:13→19:46)
[2022-02-19] MEDS: Lidocaine PATCH 5% PATCH TRANSDERM SCH (08:22)
[2022-02-19] MEDS: Aspirin EC 81 mg TAB.EC (enteric coated) PO SCH (08:22)
[2022-02-19] MEDS: Mometasone/Formoter 200/5 MDI INH SCH ×2 (08:31→19:47)
[2022-02-19] MEDS: SPIRIVA Respimat (tiotropium) 2.5 mcg/inh Inhaler INH SCH (09:50)
[2022-02-20] MEDS: Enoxaparin 80 MG/0.8 ML SYR SUBCUT SCH ×2 (09:46→20:32)
[2022-02-20] MEDS: Aspirin EC 81 mg TAB.EC (enteric coated) PO SCH (09:47)
[2022-02-20] MEDS: Mometasone/Formoter 200/5 MDI INH SCH ×2 (09:50→20:29)
[2022-02-20] MEDS: SPIRIVA Respimat (tiotropium) 2.5 mcg/inh Inhaler INH SCH (09:53)
[2022-02-20] MEDS: Lidocaine PATCH 5% PATCH TRANSDERM SCH (09:53)
[2022-02-20] MEDS: Senna TAB 8.6 mg TAB PO PRN (20:30)
[2022-02-21 06:59] LABS: ABS Eosinophils 0.2 10^3/ul (0-0.6); ABS Lymphocytes 1.9 10^3/ul (1.0-4.8); ABS Monocytes 0.9 10^3/ul (0-0.8); ABS Neutrophils 4.2 10^3/ul (1.5-7.7); Eosinophil % 2.9 %; Hematocrit 29 % (42-52); Hemoglobin 9.7 g/dL (14.0-18.0); Lymphocyte % 26.6 %; Mean Corpuscular HGB Conc 34 g/dL (31-36); Mean Corpuscular Hemoglobin 31 pg (27-31); Mean Corpuscular Volume 91 fL (80-94); Mean Platelet Volume 9.1 fL (7.4-10.4); Platelet Count 205 10^3/uL (150-450); Red Blood Count 3.15 10^6 /uL (4.18-5.48); Red Cell Distribution Width 14 % (10-15); White Blood Count 7.2 10^3/uL (3.5-10.8)
[2022-02-21 07:17] LABS: Albumin 3.1 g/dL (3.2-5.2); Albumin/Globulin Ratio 1.5 (1-3); Calcium 8.4 mg/dL (8.6-10.3); Globulin 2.1 g/dL (2-4); Potassium 3.9 mmol/L (3.5-5.0); Total Bilirubin 0.4 mg/dL (0.2-1.0); Total Protein 5.2 g/dL (6.4-8.9); eGFR CKD-EPI 100.3 (>60)
[2022-02-21] MEDS: Enoxaparin 80 MG/0.8 ML SYR SUBCUT SCH ×2 (09:15→21:27)
[2022-02-21] MEDS: SPIRIVA Respimat (tiotropium) 2.5 mcg/inh Inhaler INH SCH (09:16)
[2022-02-21] MEDS: Mometasone/Formoter 200/5 MDI INH SCH ×2 (09:16→19:00)
[2022-02-21] MEDS: Aspirin EC 81 mg TAB.EC (enteric coated) PO SCH (09:16)
[2022-02-21] MEDS: Lidocaine PATCH 5% PATCH TRANSDERM SCH (09:24)
[2022-02-22] MEDS: Aspirin EC 81 mg TAB.EC (enteric coated) PO SCH (08:12)
[2022-02-22] MEDS: Lidocaine PATCH 5% PATCH TRANSDERM SCH (08:13)
[2022-02-22] MEDS: Enoxaparin 80 MG/0.8 ML SYR SUBCUT SCH ×2 (09:00→20:44)
[2022-02-22] MEDS: SPIRIVA Respimat (tiotropium) 2.5 mcg/inh Inhaler INH SCH (09:00)
[2022-02-22] MEDS: Mometasone/Formoter 200/5 MDI INH SCH ×2 (09:00→19:15)
[2022-02-23] MEDS: Enoxaparin 80 MG/0.8 ML SYR SUBCUT SCH ×2 (08:19→21:06)
[2022-02-23] MEDS: Mometasone/Formoter 200/5 MDI INH SCH ×2 (08:19→21:04)
[2022-02-23] MEDS: Aspirin EC 81 mg TAB.EC (enteric coated) PO SCH (08:19)
[2022-02-23] MEDS: SPIRIVA Respimat (tiotropium) 2.5 mcg/inh Inhaler INH SCH (08:20)
[2022-02-23] MEDS: Lidocaine PATCH 5% PATCH TRANSDERM SCH (08:20)
[2022-02-23] MEDS: ALIROCUMAB 75 MG/ML SUBCUT ONE ×2 (12:59→15:33)
[2022-02-23] MEDS: Magnesium Hydroxide LIQ 30 ML UDC PO PRN (15:57)
[2022-02-24] MEDS: Lidocaine PATCH 5% PATCH TRANSDERM SCH (08:33)
[2022-02-24] MEDS: Enoxaparin 80 MG/0.8 ML SYR SUBCUT SCH ×2 (08:38→20:33)
[2022-02-24] MEDS: Aspirin EC 81 mg TAB.EC (enteric coated) PO SCH (08:38)
[2022-02-24] MEDS: SPIRIVA Respimat (tiotropium) 2.5 mcg/inh Inhaler INH SCH (08:39)
[2022-02-24] MEDS: Mometasone/Formoter 200/5 MDI INH SCH ×2 (08:39→19:46)
[2022-02-24] MEDS: Senna TAB 8.6 mg TAB PO PRN (20:34)
[2022-02-25] MEDS: Enoxaparin 80 MG/0.8 ML SYR SUBCUT SCH ×2 (08:07→19:36)
[2022-02-25] MEDS: Aspirin EC 81 mg TAB.EC (enteric coated) PO SCH (08:07)
[2022-02-25] MEDS: Lidocaine PATCH 5% PATCH TRANSDERM SCH (08:11)
[2022-02-25] MEDS: Mometasone/Formoter 200/5 MDI INH SCH ×2 (08:12→18:09)
[2022-02-25] MEDS: SPIRIVA Respimat (tiotropium) 2.5 mcg/inh Inhaler INH SCH (08:13)
[2022-02-25] MEDS ORDERED: Polyethylene Glycol 3350 17 GM PACKET PO PRN (09:39)
[2022-02-25] MEDS: Senna TAB 8.6 mg TAB PO PRN (22:07)
[2022-02-26] MEDS: SPIRIVA Respimat (tiotropium) 2.5 mcg/inh Inhaler INH SCH (07:46)
[2022-02-26] MEDS: Mometasone/Formoter 200/5 MDI INH SCH ×2 (07:47→19:06)
[2022-02-26] MEDS: Enoxaparin 80 MG/0.8 ML SYR SUBCUT SCH ×2 (09:08→20:23)
[2022-02-26] MEDS: Aspirin EC 81 mg TAB.EC (enteric coated) PO SCH (09:08)
[2022-02-26] MEDS: Lidocaine PATCH 5% PATCH TRANSDERM SCH (09:14)
[2022-02-27] MEDS: Mometasone/Formoter 200/5 MDI INH SCH ×2 (07:59→21:12)
[2022-02-27] MEDS: SPIRIVA Respimat (tiotropium) 2.5 mcg/inh Inhaler INH SCH (08:01)
[2022-02-27] MEDS: Aspirin EC 81 mg TAB.EC (enteric coated) PO SCH (08:39)
[2022-02-27] MEDS: Enoxaparin 80 MG/0.8 ML SYR SUBCUT SCH ×2 (08:40→21:05)
[2022-02-27] MEDS: Lidocaine PATCH 5% PATCH TRANSDERM SCH (08:50)
[2022-02-28 07:58] LABS: ABS Eosinophils 0.2 10^3/ul (0-0.6); ABS Lymphocytes 1.4 10^3/ul (1.0-4.8); ABS Monocytes 0.8 10^3/ul (0-0.8); ABS Neutrophils 5.9 10^3/ul (1.5-7.7); Hematocrit 30 % (42-52); Hemoglobin 10.2 g/dL (14.0-18.0); Lymphocyte % 16.7 %; Mean Corpuscular HGB Conc 34 g/dL (31-36); Mean Corpuscular Hemoglobin 30 pg (27-31); Mean Corpuscular Volume 90 fL (80-94); Mean Platelet Volume 9.3 fL (7.4-10.4); Platelet Count 187 10^3/uL (150-450); Red Blood Count 3.35 10^6 /uL (4.18-5.48); Red Cell Distribution Width 14 % (10-15); White Blood Count 8.3 10^3/uL (3.5-10.8)
[2022-02-28 08:40] LABS: Albumin 3.1 g/dL (3.2-5.2); Albumin/Globulin Ratio 1.3 (1-3); Calcium 8.6 mg/dL (8.6-10.3); Globulin 2.3 g/dL (2-4); Potassium 4.4 mmol/L (3.5-5.0); Total Bilirubin 0.3 mg/dL (0.2-1.0); Total Protein 5.4 g/dL (6.4-8.9); eGFR CKD-EPI 98.4 (>60)
[2022-02-28] MEDS: Aspirin EC 81 mg TAB.EC (enteric coated) PO SCH (10:14)
[2022-02-28] MEDS: Enoxaparin 80 MG/0.8 ML SYR SUBCUT SCH ×2 (10:15→19:33)
[2022-02-28] MEDS: SPIRIVA Respimat (tiotropium) 2.5 mcg/inh Inhaler INH SCH (10:25)
[2022-02-28] MEDS: Mometasone/Formoter 200/5 MDI INH SCH ×2 (10:25→19:30)
[2022-02-28] MEDS: Lidocaine PATCH 5% PATCH TRANSDERM SCH (12:31)
[2022-02-28] MEDS: Senna TAB 8.6 mg TAB PO PRN (21:51)
[2022-03-01] MEDS: Mometasone/Formoter 200/5 MDI INH SCH ×2 (09:06→19:23)
[2022-03-01] MEDS: Aspirin EC 81 mg TAB.EC (enteric coated) PO SCH (09:08)
[2022-03-01] MEDS: SPIRIVA Respimat (tiotropium) 2.5 mcg/inh Inhaler INH SCH (09:09)
[2022-03-01] MEDS: Lidocaine PATCH 5% PATCH TRANSDERM SCH (09:09)
[2022-03-01] MEDS: Magnesium Hydroxide LIQ 30 ML UDC PO PRN (16:22)
[2022-03-01] MEDS: Senna TAB 8.6 mg TAB PO PRN (21:37)
[2022-03-02] MEDS: Aspirin EC 81 mg TAB.EC (enteric coated) PO SCH (09:19)
[2022-03-02] MEDS: Lidocaine PATCH 5% PATCH TRANSDERM SCH (09:20)
[2022-03-02] MEDS: SPIRIVA Respimat (tiotropium) 2.5 mcg/inh Inhaler INH SCH (09:20)
[2022-03-02] MEDS: Mometasone/Formoter 200/5 MDI INH SCH ×2 (09:24→19:55)
[2022-03-02] MEDS ORDERED: Polyethylene Glycol 3350 17 GM PACKET PO ONE (09:49)
[2022-03-02] MEDS: Magnesium Hydroxide LIQ 30 ML UDC PO PRN (17:06)
[2022-03-03] MEDS: Aspirin EC 81 mg TAB.EC (enteric coated) PO SCH (09:59)
[2022-03-03] MEDS: SPIRIVA Respimat (tiotropium) 2.5 mcg/inh Inhaler INH SCH (10:02)
[2022-03-03] MEDS: Mometasone/Formoter 200/5 MDI INH SCH ×2 (10:02→19:43)
[2022-03-03] MEDS: Lidocaine PATCH 5% PATCH TRANSDERM SCH (10:02)
[2022-03-04] MEDS: Mometasone/Formoter 200/5 MDI INH SCH ×2 (08:46→18:26)
[2022-03-04] MEDS: SPIRIVA Respimat (tiotropium) 2.5 mcg/inh Inhaler INH SCH (08:46)
[2022-03-04] MEDS: Aspirin EC 81 mg TAB.EC (enteric coated) PO SCH (09:34)
[2022-03-04] MEDS: Lidocaine PATCH 5% PATCH TRANSDERM SCH (09:37)
[2022-03-04] MEDS: Magnesium Hydroxide LIQ 30 ML UDC PO PRN (09:47)
[2022-03-04] MEDS: Senna TAB 8.6 mg TAB PO PRN (21:15)
[2022-03-05] MEDS: Mometasone/Formoter 200/5 MDI INH SCH ×2 (07:53→18:43)
[2022-03-05] MEDS: SPIRIVA Respimat (tiotropium) 2.5 mcg/inh Inhaler INH SCH (07:53)
[2022-03-05] MEDS: Lidocaine PATCH 5% PATCH TRANSDERM SCH (10:14)
[2022-03-05] MEDS: Aspirin EC 81 mg TAB.EC (enteric coated) PO SCH (10:15)
[2022-03-05] MEDS: Magnesium Hydroxide LIQ 30 ML UDC PO PRN (21:07)
[2022-03-06 04:30] VITALS: BP 113/69
[2022-03-06] MEDS: Aspirin EC 81 mg TAB.EC (enteric coated) PO SCH (07:35)
[2022-03-06] MEDS: Lidocaine PATCH 5% PATCH TRANSDERM SCH (08:41)
[2022-03-06] MEDS: Mometasone/Formoter 200/5 MDI INH SCH (11:02)
[2022-03-06] MEDS: SPIRIVA Respimat (tiotropium) 2.5 mcg/inh Inhaler INH SCH (11:03)
[2022-03-09] MEDS ORDERED: ALIROCUMAB 75 MG/ML SUBCUT ONE (09:00)
== END 2022-03-06 11:00 | disposition home health service (06) | DRG 560 ==
LOC: PMRU 18:31
PROVIDERS: ADMIT Physical Medicine & Rehabilitation; ATTEND Physical Medicine & Rehabilitation